=== PATIENT | male | born 2005 | race Caucasian/White ===

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

== ENCOUNTER 2024-03-10 03:29 | Emergency (ER) | payer OTHER, SELFPAY ==
[~2024-03-10] VITALS: Ht 175.3 cm; Wt 63.6 kg
[2024-03-10 03:50] LABS: HEMATOCRIT 41.8 % (42.0-52.0); HEMOGLOBIN 13.8 g/dl (13.5-17.5); MEAN CORPUSCULAR HEMOGLOBIN 28.3 pg (27.0-33.0); MEAN CORPUSCULAR VOLUME 85.7 fl (80.0-96.0); PLATELET COUNT, AUTOMATED 396 10^3/uL (150-450); RED BLOOD COUNT 4.88 10^6/uL (4.30-6.10); WHITE BLOOD COUNT 11.8 10^3/uL (4.0-10.0)
[2024-03-10 04:14] LABS: ETHYL ALCOHOL (ETHANOL) 0.296 % (0.000-0.010)
[2024-03-10 04:15] LABS: ALBUMIN 4.1 G/DL (3.2-5.2); ALKALINE PHOSPHATASE 87 U/L (46-116); ALT/SGPT 42 U/L (7.0-40); AST/SGOT 41 U/L (<34); BILIRUBIN,DIRECT 0.2 MG/DL (<0.4); BILIRUBIN,TOTAL 0.6 MG/DL (0.3-1.2); BLOOD UREA NITROGEN 10 MG/DL (9-23); CALCIUM LEVEL 9.5 MG/DL (8.5-10.1); CARBON DIOXIDE LEVEL 26 MMOL/L (20-31); CHLORIDE LEVEL 110 MMOL/L (98-107); CREATININE FOR GFR 0.67 MG/DL (0.70-1.30); GLUCOSE, FASTING 115 MG/DL (60-100); SALICYLATE LEVEL < 3.0 MG/DL (<30); SODIUM LEVEL 143 MMOL/L (136-145); TOTAL PROTEIN 7.2 G/DL (5.7-8.2)
[2024-03-10 04:19] LABS: THYROID STIMULATING HORMONE 2.108 uIU/ML (0.48-4.17)
[2024-03-10 04:25] LABS: AMPHETAMINES LEVEL URINE NEGATIVE (NEGATIVE); BARBITURATES URINE NEGATIVE (NEGATIVE); BENZODIAZEPINES URINE NEGATIVE (NEGATIVE); COCAINE METABOLITE URINE NEGATIVE (NEGATIVE)
[2024-03-10 04:26] LABS: METHADONE URINE NEGATIVE (NEGATIVE); OPIATES URINE NEGATIVE (NEGATIVE); PHENCYCLIDINE URINE NEGATIVE (NEGATIVE)
[2024-03-10 05:05] LABS: CANNABINOIDS URINE POSITIVE (NEGATIVE)
[2024-03-10] MEDS ORDERED: LORA-930 PO (05:32)
[2024-03-10] MEDS ORDERED: HOME MED LIST COMPLETE! XX SCH (05:35)
[2024-03-10 14:56] VITALS: BP 139/90; TEMP 98.4; O2SAT 100
== END 2024-03-10 15:13 | disposition home or self-care (01) ==
LOC: M ED 03:29
DX: F43.0 Acute stress reaction (principal); F10.120 Alcohol abuse with intoxication, uncomplicated; F17.290 Nicotine dependence, other tobacco product, uncomplicated; Z79.899 Other long term (current) drug therapy

== ENCOUNTER 2024-04-14 22:47 | Emergency (ER) | payer SELFPAY ==
[~2024-04-14] VITALS: Ht 175.3 cm; Wt 66.4 kg
[2024-04-14 22:47] VITALS: TEMP 99.4
[~2024-04-14 22:47] MED LIST: LORA-930 PO
[2024-04-15 02:20] VITALS: BP 166/75; O2SAT 98
[2024-04-15] MEDS ORDERED: IBUP-1022 PO (20:35)
== END 2024-04-15 02:31 | disposition home or self-care (01) ==
LOC: M ED 22:47
DX: N43.3 Hydrocele, unspecified (principal); N50.811 Right testicular pain; F17.200 Nicotine dependence, unspecified, uncomplicated; F12.10 Cannabis abuse, uncomplicated; Z79.1 Long term (current) use of non-steroidal anti-inflammatories (NSAID); Z79.899 Other long term (current) drug therapy

== ENCOUNTER 2024-04-15 15:54 | Emergency (ER) | payer BC, SELFPAY ==
[~2024-04-15] VITALS: Ht 175.3 cm; Wt 66.9 kg
[2024-04-15 15:54] VITALS: BP 147/86; TEMP 98.5; O2SAT 100
[2024-04-15 18:50] LABS: BASO % 0.7 % (0.0-1.0); EOS % 0.5 % (0.0-3.0); HEMATOCRIT 45.2 % (42.0-52.0); HEMOGLOBIN 15.1 g/dl (13.5-17.5); LYMPH # 1.9 10^3/uL (1.5-5.0); LYMPH % 32.3 % (24.0-44.0); MEAN CORPUSCULAR HEMOGLOBIN 28.5 pg (27.0-33.0); MEAN CORPUSCULAR HGB CONC 33.4 g/dl (32.0-36.5); MEAN CORPUSCULAR VOLUME 85.4 fl (80.0-96.0); MONO # 0.6 10^3/uL (0.0-0.8); MONO % 10.5 % (2.0-8.0); NEUTROPHILS # 3.2 10^3/uL (1.5-8.5); NEUTROPHILS % 55.8 % (36.0-66.0); PLATELET COUNT, AUTOMATED 307 10^3/uL (150-450); RED BLOOD COUNT 5.29 10^6/uL (4.30-6.10); WHITE BLOOD COUNT 5.7 10^3/uL (4.0-10.0)
[2024-04-15 19:14] LABS: LIPASE 31 U/L (12-53)
[2024-04-15 19:16] LABS: ALBUMIN 4.6 G/DL (3.2-5.2); ALKALINE PHOSPHATASE 111 U/L (46-116); ALT/SGPT 199 U/L (7.0-40); AMYLASE 68 U/L (30-118); AST/SGOT 193 U/L (<34); BILIRUBIN,DIRECT 0.5 MG/DL (<0.4); BILIRUBIN,TOTAL 1.5 MG/DL (0.3-1.2); BLOOD UREA NITROGEN 11 MG/DL (9-23); CALCIUM LEVEL 9.8 MG/DL (8.5-10.1); CARBON DIOXIDE LEVEL 28 MMOL/L (20-31); CHLORIDE LEVEL 103 MMOL/L (98-107); CREATININE FOR GFR 0.64 MG/DL (0.70-1.30); GLUCOSE, FASTING 95 MG/DL (60-100); POTASSIUM SERUM 5.1 MMOL/L (3.5-5.1); SODIUM LEVEL 136 MMOL/L (136-145); TOTAL PROTEIN 7.8 G/DL (5.7-8.2)
[2024-04-15 20:31] LABS: HEPATITIS B SURFACE ANTIGEN NEGATIVE (NEGATIVE)
[2024-04-15] MEDS ORDERED: IBUP-1022 PO (20:35)
[2024-04-15 20:52] LABS: HEPATITIS B CORE ANTIBODY IGM NEGATIVE (NEGATIVE); HEPATITIS C VIRUS ABY INDEX < 0.02 INDEX (<0.8)
== END 2024-04-15 21:11 | disposition home or self-care (01) ==
LOC: M ED 15:54
DX: N50.811 Right testicular pain (principal); R74.01 Elevation of levels of liver transaminase levels; F17.200 Nicotine dependence, unspecified, uncomplicated; F12.10 Cannabis abuse, uncomplicated; Z79.1 Long term (current) use of non-steroidal anti-inflammatories (NSAID); Z79.899 Other long term (current) drug therapy

== ENCOUNTER 2024-05-01 05:08 | Emergency (ER) | payer BC ==
[~2024-05-01] VITALS: Ht 170.2 cm; Wt 55.0 kg
[~2024-05-01 05:08] MED LIST changes: +IBUP-1022 PO
[2024-05-01 06:26] LABS: HEMATOCRIT 44.3 % (42.0-52.0); MEAN CORPUSCULAR HEMOGLOBIN 28.4 pg (27.0-33.0); MEAN CORPUSCULAR HGB CONC 33.9 g/dl (32.0-36.5); MEAN CORPUSCULAR VOLUME 83.9 fl (80.0-96.0); PLATELET COUNT, AUTOMATED 380 10^3/uL (150-450); RED BLOOD COUNT 5.28 10^6/uL (4.30-6.10); WHITE BLOOD COUNT 10.5 10^3/uL (4.0-10.0)
[2024-05-01 06:45] LABS: BARBITURATES URINE NEGATIVE (NEGATIVE); COCAINE METABOLITE URINE NEGATIVE (NEGATIVE); METHADONE URINE NEGATIVE (NEGATIVE); OPIATES URINE NEGATIVE (NEGATIVE); PHENCYCLIDINE URINE NEGATIVE (NEGATIVE)
[2024-05-01 06:46] LABS: AMPHETAMINES LEVEL URINE NEGATIVE (NEGATIVE); BENZODIAZEPINES URINE NEGATIVE (NEGATIVE)
[2024-05-01 06:47] LABS: ETHYL ALCOHOL (ETHANOL) 0.283 % (0.000-0.010)
[2024-05-01 06:48] LABS: CANNABINOIDS URINE POSITIVE (NEGATIVE)
[2024-05-01 06:49] LABS: ALBUMIN 4.1 G/DL (3.2-5.2); ALKALINE PHOSPHATASE 133 U/L (46-116); ALT/SGPT 174 U/L (7.0-40); AST/SGOT 76 U/L (<34); BILIRUBIN,DIRECT 0.3 MG/DL (<0.4); BILIRUBIN,TOTAL 0.7 MG/DL (0.3-1.2); BLOOD UREA NITROGEN 12 MG/DL (9-23); CALCIUM LEVEL 9.2 MG/DL (8.5-10.1); CARBON DIOXIDE LEVEL 24 MMOL/L (20-31); CHLORIDE LEVEL 105 MMOL/L (98-107); CREATININE FOR GFR 0.62 MG/DL (0.70-1.30); GLUCOSE, FASTING 103 MG/DL (60-100); POTASSIUM SERUM 3.9 MMOL/L (3.5-5.1); SALICYLATE LEVEL < 3.0 MG/DL (<30); SODIUM LEVEL 141 MMOL/L (136-145); TOTAL PROTEIN 7.6 G/DL (5.7-8.2)
[2024-05-01 06:51] LABS: THYROID STIMULATING HORMONE 2.831 uIU/ML (0.48-4.17)
[2024-05-01] MEDS ORDERED: FOLIC ACID 1MG TAB PO SCH (09:00)
[2024-05-01] MEDS ORDERED: MULTIVITAMINS/MINERALS THERAP 1 TAB PO SCH (09:00)
[2024-05-01] MEDS ORDERED: LORazepam 2 MG TAB PO PRN (13:20)
[2024-05-01 13:35] VITALS: BP 159/91; TEMP 98; O2SAT 99
[2024-05-01] MEDS ORDERED: THIAMINE 100 MG TAB PO SCH (21:00)
== END 2024-05-01 13:45 | disposition home or self-care (01) ==
LOC: M ED 05:08
DX: F10.120 Alcohol abuse with intoxication, uncomplicated (principal); Z79.1 Long term (current) use of non-steroidal anti-inflammatories (NSAID); Z79.899 Other long term (current) drug therapy

== ENCOUNTER 2025-03-04 17:57 | Emergency (ER) | payer BC, OTHER, SELFPAY ==
[~2025-03-04] VITALS: Ht 175.3 cm; Wt 73.9 kg
[2025-03-04 18:36] LABS: BASO # 0.1 10^3/uL (0.0-0.2); BASO % 1.1 % (0.0-1.0); EOS # 0.1 10^3/uL (0.0-0.5); EOS % 1.6 % (0.0-3.0); LYMPH # 1.3 10^3/uL (1.5-5.0); LYMPH % 30.0 % (24.0-44.0); MONO # 0.4 10^3/uL (0.0-0.8); MONO % 8.9 % (2.0-8.0); NEUTROPHILS # 2.5 10^3/uL (1.5-8.5); NEUTROPHILS % 58.2 % (36.0-66.0); PLATELET COUNT, AUTOMATED 298 10^3/uL (150-450)
[2025-03-04 19:11] LABS: ETHYL ALCOHOL (ETHANOL) < 0.003 % (0.000-0.010)
[2025-03-04 19:17] LABS: AMPHETAMINES LEVEL URINE NEGATIVE (NEGATIVE); BARBITURATES URINE NEGATIVE (NEGATIVE); BENZODIAZEPINES URINE NEGATIVE (NEGATIVE); COCAINE METABOLITE URINE NEGATIVE (NEGATIVE); METHADONE URINE NEGATIVE (NEGATIVE); OPIATES URINE NEGATIVE (NEGATIVE)
[2025-03-04 19:18] LABS: PHENCYCLIDINE URINE NEGATIVE (NEGATIVE)
[2025-03-04 19:21] LABS: CANNABINOIDS URINE POSITIVE (NEGATIVE)
[2025-03-04 19:25] LABS: ALT/SGPT 77 U/L (7.0-40); AST/SGOT 130 U/L (<34); CALCIUM LEVEL 4.6 MG/DL (8.5-10.1); CARBON DIOXIDE LEVEL 14 MMOL/L (20-31); CHLORIDE LEVEL 117 MMOL/L (98-107); CREATININE FOR GFR 0.36 MG/DL (0.70-1.30); GLOMERULAR FILTRATION RATE > 90.0 (>60); MAGNESIUM LEVEL 1.0 MG/DL (1.8-2.4); PHOSPHORUS LEVEL 1.7 MG/DL (2.5-4.9); POTASSIUM SERUM 2.9 MMOL/L (3.5-5.1); SODIUM LEVEL 146 MMOL/L (136-145)
[2025-03-04] MEDS: NS (Normal Saline) 0.9% 1,000 ML IV ONE (20:15)
[2025-03-04 20:27] LABS: ALT/SGPT 129 U/L (7.0-40); AST/SGOT 205 U/L (<34); CALCIUM LEVEL 8.9 MG/DL (8.5-10.1); CARBON DIOXIDE LEVEL 26 MMOL/L (20-31); CHLORIDE LEVEL 100 MMOL/L (98-107); CREATININE FOR GFR 0.64 MG/DL (0.70-1.30); GLOMERULAR FILTRATION RATE > 90.0 (>60); POTASSIUM SERUM 4.0 MMOL/L (3.5-5.1); SODIUM LEVEL 138 MMOL/L (136-145)
[2025-03-04] MEDS ORDERED: HOME MED LIST COMPLETE! XX SCH (22:30)
[2025-03-04 23:25] VITALS: BP 151/103; TEMP 96.9; O2SAT 100
== END 2025-03-04 23:36 | disposition left against medical advice (07) ==
LOC: M ED 17:57 → EDBD 17:57 → M ED 23:36
DX: F10.231 Alcohol dependence with withdrawal delirium (principal); G40.89 Other seizures; Z53.9 Procedure and treatment not carried out, unspecified reason

== ENCOUNTER 2025-06-21 10:11 | Emergency (ER) | payer BC ==
[~2025-06-21] VITALS: Ht 175.3 cm; Wt 68.9 kg
[~2025-06-21 10:11] MED LIST changes: -IBUP-1022 PO; +IBUP600T42 PO
[2025-06-21 10:22] VITALS: BP 165/104; TEMP 96.7
[2025-06-21] MEDS ORDERED: EEG XX (10:35)
[2025-06-21 10:37] VITALS: O2SAT 100
== END 2025-06-21 10:50 | disposition left against medical advice (07) ==
LOC: M ED 10:11 → EDBD 10:11 → M ED 10:50
DX: Z53.21 Procedure and treatment not carried out due to patient leaving prior to being seen by health care provider (principal)

== ENCOUNTER 2025-07-06 01:29 | Inpatient (IN) | payer OTHER, BC ==
[~2025-07-06] VITALS: Ht 175.3 cm; Wt 68.8 kg
[2025-07-06] VITALS (8 sets, daily range): BP systolic 138–174; BP diastolic 89–112; TEMP 97–98.9; O2SAT 96–99
[~2025-07-06 01:29] MED LIST changes: +EEG XX
[2025-07-06 02:11] LABS: BASO # 0.1 10^3/uL (0.0-0.2); BASO % 0.4 % (0.0-1.0); EOS # 0.0 10^3/uL (0.0-0.5); EOS % 0.0 % (0.0-3.0); LYMPH # 1.0 10^3/uL (1.5-5.0); LYMPH % 8.6 % (24.0-44.0); MONO # 0.6 10^3/uL (0.0-0.8); MONO % 5.2 % (2.0-8.0); NEUTROPHILS # 10.1 10^3/uL (1.5-8.5); NEUTROPHILS % 85.5 % (36.0-66.0); PLATELET COUNT, AUTOMATED 370 10^3/uL (150-450)
[2025-07-06 02:33] LABS: ALT/SGPT 162 U/L (7.0-40); AST/SGOT 330 U/L (<34); CALCIUM LEVEL 9.4 MG/DL (8.5-10.1); CARBON DIOXIDE LEVEL 19 MMOL/L (20-31); CHLORIDE LEVEL 93 MMOL/L (98-107); CREATININE FOR GFR 0.52 MG/DL (0.70-1.30); GLOMERULAR FILTRATION RATE > 90.0 (>60); POTASSIUM SERUM 4.5 MMOL/L (3.5-5.1); SODIUM LEVEL 136 MMOL/L (136-145)
[2025-07-06] MEDS: ONDANSETRON 4MG/2ML VIAL IV ONE (02:49)
[2025-07-06 03:57] LABS: ETHYL ALCOHOL (ETHANOL) 0.231 % (0.000-0.010)
[2025-07-06 04:07] LABS: CHOLESTEROL LEVEL 330 MG/DL (<200); CHOLESTEROL RISK RATIO 2.30 (<5); LDL CHOLESTEROL 158.0 MG/DL (<100); MAGNESIUM LEVEL 2.0 MG/DL (1.8-2.4); NON-HDL-C 186.8 MG/DL; TRIGLYCERIDES LEVEL 144 MG/DL (<150)
[2025-07-06] MEDS ORDERED: ISOVUE-370 76% 100 ML VIAL As Ordered ONE (04:11)
[2025-07-06] MEDS: MORPHINE 2 MG/ML 1 ML VIAL IV ONE (04:15)
[2025-07-06] MEDS: NS (Normal Saline) 0.9% 1,000 ML IV ONE ×2 (04:15→10:42)
[2025-07-06 05:17] LABS: AMORPHOUS SEDIMENT MODERATE (NEGATIVE); APPEARANCE, URINE HAZY (CLEAR); BACTERIA, URINE AUTO NEGATIVE (NEGATIVE); BILIRUBIN, URINE AUTO NEGATIVE (NEGATIVE); BLOOD, URINE BLOOD 1+ (NEGATIVE); GLUCOSE, URINE (UA) AUTO NEGATIVE (NEGATIVE); KETONE, URINE AUTO 2+ mg/dL (NEGATIVE); LEUKOCYTE ESTERASE, URINE AUTO NEGATIVE (NEGATIVE); NITRITE, URINE AUTO NEGATIVE (NEGATIVE); PROTEIN, URINE AUTO 3+ mg/dL (NEGATIVE); RBC, URINE AUTO 0 /HPF (0-3); SPECIFIC GRAVITY URINE AUTO 1.049 (1.002-1.035); SQUAMOUS EPITHELIAL CELL UR AU 0 /HPF (0-6); UROBILINOGEN, URINE AUTO 2.0 mg/dL (0.0-2.0); WBC, URINE AUTO 0 /HPF (0-3)
[2025-07-06 05:34] LABS: AMPHETAMINES LEVEL URINE NEGATIVE (NEGATIVE); BARBITURATES URINE NEGATIVE (NEGATIVE); BENZODIAZEPINES URINE NEGATIVE (NEGATIVE); COCAINE METABOLITE URINE NEGATIVE (NEGATIVE); METHADONE URINE NEGATIVE (NEGATIVE); OPIATES URINE NEGATIVE (NEGATIVE); PHENCYCLIDINE URINE NEGATIVE (NEGATIVE)
[2025-07-06 05:40] LABS: CANNABINOIDS URINE POSITIVE (NEGATIVE)
[2025-07-06] MEDS: HYDROMORPHONE HCL 0.5 MG/0.5 ML SYRINGE IV PRN (06:09)
[2025-07-06 06:16] LABS: LDH LACTATE DEHYDROGENASE 332 U/L (120-246)
[2025-07-06] MEDS ORDERED: HOME MED LIST COMPLETE! XX SCH (07:55)
[2025-07-06] MEDS: ONDANSETRON 4MG ORAL DISINTEGRATING TAB PO ONE (10:42)
[2025-07-06] MEDS: MULTIVITAMINS/MINERALS THERAP 1 TAB PO SCH (11:01)
[2025-07-06] MEDS: FOLIC ACID 1 MG TAB PO SCH (11:02)
[2025-07-06] MEDS: THIAMINE 100 MG TAB PO SCH ×2 (12:16→21:13)
[2025-07-06] MEDS: D5W/0.45% SODIUM CHLORIDE 1,000 ML IV ONE (13:36)
[2025-07-06] MEDS ORDERED: HYDROmorphone HCL 2 MG/ML 1 ML VIAL IV PRN (13:50)
[2025-07-06] MEDS ORDERED: HYDROMORPHONE HCL 0.5 MG/0.5 ML SYRINGE IV PRN (13:50)
[2025-07-06 15:19] LABS: BASO # 0.0 10^3/uL (0.0-0.2); BASO % 0.3 % (0.0-1.0); EOS # 0.0 10^3/uL (0.0-0.5); EOS % 0.0 % (0.0-3.0); LYMPH # 1.2 10^3/uL (1.5-5.0); LYMPH % 9.7 % (24.0-44.0); MONO # 0.7 10^3/uL (0.0-0.8); MONO % 6.0 % (2.0-8.0); NEUTROPHILS # 10.1 10^3/uL (1.5-8.5); NEUTROPHILS % 83.8 % (36.0-66.0)
[2025-07-06] MEDS: LR 1,000 ML IV SCH (15:25)
[2025-07-06 15:51] LABS: ALT/SGPT 108 U/L (7.0-40); AST/SGOT 207 U/L (<34); CALCIUM LEVEL 8.1 MG/DL (8.5-10.1); CARBON DIOXIDE LEVEL 18 MMOL/L (20-31); CHLORIDE LEVEL 97 MMOL/L (98-107); CREATININE FOR GFR 0.47 MG/DL (0.70-1.30); GLOMERULAR FILTRATION RATE > 90.0 (>60); MAGNESIUM LEVEL 1.7 MG/DL (1.8-2.4); PHOSPHORUS LEVEL 2.2 MG/DL (2.5-4.9); POTASSIUM SERUM 4.6 MMOL/L (3.5-5.1); SODIUM LEVEL 134 MMOL/L (136-145)
[2025-07-06] MEDS: MAG SULF 1GM/100ML (MAG RUN) 1 GM in IV 1 EA IV SCH ×2 (18:40→21:10)
[2025-07-06] MEDS: CALCIUM CARBONATE 500 MG CHEW U/D PO ONE (18:40)
[2025-07-06 20:37] LABS: ALT/SGPT 98 U/L (7.0-40); AST/SGOT 201 U/L (<34); CALCIUM LEVEL 8.1 MG/DL (8.5-10.1); CARBON DIOXIDE LEVEL 18 MMOL/L (20-31); CHLORIDE LEVEL 95 MMOL/L (98-107); CREATININE FOR GFR 0.47 MG/DL (0.70-1.30); GLOMERULAR FILTRATION RATE > 90.0 (>60); MAGNESIUM LEVEL 2.0 MG/DL (1.8-2.4); PHOSPHORUS LEVEL 1.4 MG/DL (2.5-4.9); POTASSIUM SERUM 4.2 MMOL/L (3.5-5.1); SODIUM LEVEL 131 MMOL/L (136-145)
[2025-07-06] MEDS ORDERED: THIAMINE 100 MG TAB PO SCH (21:00)
[2025-07-06] MEDS: SODIUM PHOSPHATE INJ 20 MMOL in D5W 250 ML IV ONE (21:13)
[2025-07-07] VITALS (29 sets, daily range): BP systolic 133–158; BP diastolic 91–103; TEMP 98.4–100.4; O2SAT 94–99
[2025-07-07 02:00] LABS: BASO # 0.0 10^3/uL (0.0-0.2); BASO % 0.5 % (0.0-1.0); EOS # 0.0 10^3/uL (0.0-0.5); EOS % 0.3 % (0.0-3.0); LYMPH # 1.4 10^3/uL (1.5-5.0); LYMPH % 15.7 % (24.0-44.0); MONO # 0.6 10^3/uL (0.0-0.8); MONO % 6.3 % (2.0-8.0); NEUTROPHILS # 6.7 10^3/uL (1.5-8.5); NEUTROPHILS % 77.1 % (36.0-66.0)
[2025-07-07 02:22] LABS: ALT/SGPT 95 U/L (7.0-40); AST/SGOT 237 U/L (<34); CALCIUM LEVEL 8.3 MG/DL (8.5-10.1); CARBON DIOXIDE LEVEL 23 MMOL/L (20-31); CHLORIDE LEVEL 94 MMOL/L (98-107); CREATININE FOR GFR 0.46 MG/DL (0.70-1.30); GLOMERULAR FILTRATION RATE > 90.0 (>60); MAGNESIUM LEVEL 2.0 MG/DL (1.8-2.4); PHOSPHORUS LEVEL 1.7 MG/DL (2.5-4.9); POTASSIUM SERUM 3.8 MMOL/L (3.5-5.1); SODIUM LEVEL 131 MMOL/L (136-145)
[2025-07-07 02:27] LABS: PLATELET COUNT, AUTOMATED 201 10^3/uL (150-450)
[2025-07-07] MEDS: SODIUM PHOSPHATE INJ 30 MMOL in D5W 500 ML IV ONE (02:49)
[2025-07-07] MEDS ORDERED: KETOROLAC 30 MG/ML 1 ML VIAL IV ONE (03:30)
[2025-07-07 06:34] LABS: ALT/SGPT 89 U/L (7.0-40); AST/SGOT 230 U/L (<34); CALCIUM LEVEL 8.1 MG/DL (8.5-10.1); CARBON DIOXIDE LEVEL 26 MMOL/L (20-31); CHLORIDE LEVEL 94 MMOL/L (98-107); CREATININE FOR GFR 0.42 MG/DL (0.70-1.30); GLOMERULAR FILTRATION RATE > 90.0 (>60); MAGNESIUM LEVEL 1.8 MG/DL (1.8-2.4); PHOSPHORUS LEVEL 3.0 MG/DL (2.5-4.9); POTASSIUM SERUM 3.5 MMOL/L (3.5-5.1); SODIUM LEVEL 133 MMOL/L (136-145)
[2025-07-07] MEDS ORDERED: MORPHINE 2 MG/ML 1 ML VIAL IV PRN (08:55)
[2025-07-07] MEDS ORDERED: FOLIC ACID 1 MG TAB PO SCH (09:00)
[2025-07-07] MEDS ORDERED: MULTIVITAMINS/MINERALS THERAP 1 TAB PO SCH (09:00)
[2025-07-07] MEDS: MULTIVITAMINS/MINERALS THERAP 1 TAB PO SCH (09:31)
[2025-07-07] MEDS: FOLIC ACID 1 MG TAB PO SCH (09:31)
[2025-07-07] MEDS: ENOXAPARIN 40 MG/0.4 ML SYRINGE (J1650 PER 10MG) SC SCH (09:31)
[2025-07-08] VITALS (10 sets, daily range): BP systolic 131–158; BP diastolic 84–98; TEMP 97–98.7; O2SAT 94–98
[2025-07-08 02:17] LABS: BASO % 0.6 % (0.0-1.0); EOS % 1.6 % (0.0-3.0); LYMPH # 1.0 10^3/uL (1.5-5.0); LYMPH % 18.7 % (24.0-44.0); MONO % 7.7 % (2.0-8.0); NEUTROPHILS # 3.6 10^3/uL (1.5-8.5); NEUTROPHILS % 71.4 % (36.0-66.0); PLATELET COUNT, AUTOMATED 147 10^3/uL (150-450)
[2025-07-08 02:18] LABS: BASO # 0.0 10^3/uL (0.0-0.2); EOS # 0.1 10^3/uL (0.0-0.5); MONO # 0.4 10^3/uL (0.0-0.8)
[2025-07-08 06:26] LABS: ALT/SGPT 169 U/L (7.0-40); AST/SGOT 662 U/L (<34); CALCIUM LEVEL 9.1 MG/DL (8.5-10.1); CARBON DIOXIDE LEVEL 31 MMOL/L (20-31); CHLORIDE LEVEL 94 MMOL/L (98-107); CREATININE FOR GFR 0.46 MG/DL (0.70-1.30); GLOMERULAR FILTRATION RATE > 90.0 (>60); POTASSIUM SERUM 3.1 MMOL/L (3.5-5.1); SODIUM LEVEL 136 MMOL/L (136-145)
== END 2025-07-08 06:55 | disposition left against medical advice (07) | DRG 440 ==
LOC: M ED 01:29 → M ED INP 13:49 → M PCU 18:03
PROVIDERS: ADMIT Student in an Organized Health Care Education/Training Program; ATTEND Student in an Organized Health Care Education/Training Program
DX: K85.20 Alcohol induced acute pancreatitis without necrosis or infection (principal); I10 Essential (primary) hypertension; F10.10 Alcohol abuse, uncomplicated; R74.01 Elevation of levels of liver transaminase levels